=== PATIENT | male | born 1995 | race African-American/Black ===

== ENCOUNTER 2018-12-19 15:03 | Emergency (ER) | payer MEDICAID ==
[~2018-12-19] VITALS: Ht 182.9 cm; Wt 80.0 kg
[2018-12-19] MEDS ORDERED: ALBUTEROL (0.083%) 2.5MG/3ML NEB HHN STA (15:27)
[2018-12-19] MEDS ORDERED: IPRATROPIUM BROMIDE (0.02%) 0.5MG/2.5ML NEB HHN STA (15:27)
[2018-12-19] MEDS ORDERED: PREDNISONE 20MG TABLET PO ONE (16:45)
[2018-12-19 16:59] VITALS: BP 118/64
== END 2018-12-19 17:14 | disposition home or self-care (01) ==
LOC: ER 16:40
DX: J45.901 Unspecified asthma with (acute) exacerbation (principal)
CPT/HCPCS: 94640; 99283; J7512; J7611

== ENCOUNTER 2022-12-29 10:33 | Emergency (ER) | payer MEDICAID ==
[~2022-12-29] VITALS: Ht 193 cm; Wt 81.0 kg
[2022-12-29 10:58] VITALS: BP 109/80
[2022-12-29] MEDS ORDERED: DOXY100C5 MT (13:52)
[2022-12-29] MEDS ORDERED: MUPI1OIN4 TP (13:52)
== END 2022-12-29 14:25 | disposition home or self-care (01) ==
LOC: ER 10:54
DX: L72.0 Epidermal cyst (principal)
CPT/HCPCS: 99281

== ENCOUNTER 2024-01-02 14:15 | Emergency (ER) | payer MEDICAID ==
[~2024-01-02] VITALS: Ht 193 cm; Wt 78.0 kg
[~2024-01-02 14:15] MED LIST: DOXY100C5 MT; MUPI1OIN4 TP
[2024-01-02 14:18] VITALS: O2SAT 99
[2024-01-02] MEDS ORDERED: TC025C15 TP (15:35)
[2024-01-02 15:45] VITALS: BP 115/80; PULSE 85; RESP 17; TEMP 98
== END 2024-01-02 16:41 | disposition home or self-care (01) ==
LOC: ER 14:15
DX: R21 Rash and other nonspecific skin eruption (principal); J45.909 Unspecified asthma, uncomplicated
CPT/HCPCS: 99281; Z7610